=== PATIENT | male | born 1980 | race Caucasian/White ===

== ENCOUNTER 2017-08-02 20:56 | Emergency (ER) | payer OTHER ==
[~2017-08-02] VITALS: Ht 170.2 cm; Wt 131.8 kg
[2017-08-02] MEDS ORDERED: ketorolac trometh inj. 60 MG/2 ML VIAL IM ONE (21:20)
[2017-08-02] MEDS ORDERED: HYDROcodone/acetaminophen 10/325mg tab PO ONE (21:30)
[2017-08-02] MEDS ORDERED: HYDR-565 PO (21:31)
[2017-08-02 21:47] VITALS: BP 161/114
== END 2017-08-02 21:52 | disposition home or self-care (01) ==
LOC: ER 20:57
DX: M25.512 Pain in left shoulder (principal); G89.29 Other chronic pain
CPT/HCPCS: 96372; 99284; J1885

== ENCOUNTER 2017-10-02 16:50 | Emergency (ER) | payer MEDICAID ==
[~2017-10-02] VITALS: Ht 170.2 cm; Wt 131.9 kg
[2017-10-02 17:25] VITALS: BP 176/108
== END 2017-10-02 20:21 | disposition left against medical advice (07) ==
LOC: ER 16:51
DX: Z00.8 Encounter for other general examination (principal); Z53.21 Procedure and treatment not carried out due to patient leaving prior to being seen by health care provider